=== PATIENT | male | born 1985 | race Caucasian/White ===

== ENCOUNTER → 2017-05-24 | Outpatient (CLI) | payer OTHER | LOC: M OUTALCOH 12:31 | DX: Z03.89 Encounter for observation for other suspected diseases and conditions ruled out (principal) ==

== ENCOUNTER 2020-04-04 21:06 | Inpatient (IN) | payer MEDICAID, OTHER, SELFPAY ==
[~2020-04-04] VITALS: Ht 188 cm; Wt 60.0 kg
[~2020-04-04 21:06] MED LIST: No home meds; TRAZ-252 PO; TRIL1TAB PO; ZOLO50TA PO
[2020-04-04 21:56] LABS: HEMATOCRIT 51.7 % (42.0-52.0); HEMOGLOBIN 17.4 g/dl (13.5-17.5); MEAN CORPUSCULAR HEMOGLOBIN 30.7 pg (27.0-33.0); MEAN CORPUSCULAR HGB CONC 33.7 g/dl (32.0-36.5); MEAN CORPUSCULAR VOLUME 91.3 fl (80.0-96.0); PLATELET COUNT, AUTOMATED 204 10^3/uL (150-450); RED BLOOD COUNT 5.66 10^6/uL (4.30-6.10); WHITE BLOOD COUNT 6.8 10^3/uL (4.0-10.0)
[2020-04-04 22:26] LABS: AMPHETAMINES LEVEL URINE NEGATIVE (NEGATIVE); BARBITURATES URINE NEGATIVE (NEGATIVE); BENZODIAZEPINES URINE NEGATIVE (NEGATIVE); CANNABINOIDS URINE POSITIVE (NEGATIVE); COCAINE METABOLITE URINE NEGATIVE (NEGATIVE); METHADONE URINE NEGATIVE (NEGATIVE); OPIATES URINE NEGATIVE (NEGATIVE); PHENCYCLIDINE URINE NEGATIVE (NEGATIVE)
[2020-04-04 22:40] LABS: ACETAMINOPHEN LEVEL < 2.0 UG/ML (10.0-30.0); ALBUMIN 4.4 GM/DL (3.2-5.2); ALT/SGPT 22 U/L (12-78); BILIRUBIN,DIRECT 0.1 MG/DL (0.0-0.2); BILIRUBIN,TOTAL 0.5 MG/DL (0.2-1.0); BLOOD UREA NITROGEN 17 MG/DL (7-18); CALCIUM LEVEL 9.1 MG/DL (8.5-10.1); CARBON DIOXIDE LEVEL 31 MEQ/L (21-32); CHLORIDE LEVEL 106 MEQ/L (98-107); CREATININE FOR GFR 1.07 MG/DL (0.70-1.30); ETHYL ALCOHOL (ETHANOL) < 0.003 % (0.000-0.010); GLOMERULAR FILTRATION RATE > 60.0 (>60); GLUCOSE, FASTING 103 MG/DL (70-100); POTASSIUM SERUM 4.1 MEQ/L (3.5-5.1); SALICYLATE LEVEL < 1.7 MG/DL (5.0-30.0); SODIUM LEVEL 143 MEQ/L (136-145)
[2020-04-05 01:31] LABS: RSV AMPLIFICATION NEGATIVE (NEGATIVE)
[2020-04-05] MEDS ORDERED: MOM 30ML SUSPENSION UDC PO PRN (12:00)
[2020-04-05] MEDS ORDERED: ACETAMINOPHEN TAB 650MG DOSE (2X325MG) PO PRN (12:00)
[2020-04-05] MEDS ORDERED: traZODone 50 MG TAB PO PRN (12:00)
[2020-04-05] MEDS ORDERED: MAALOX 30 ML SUSP *UDC PO PRN (12:00)
[2020-04-05] MEDS ORDERED: OLANZapine ORAL DISINTEGRATING TAB 5MG PO PRN (12:00)
[2020-04-05 13:37] VITALS: BP 138/83
[2020-04-05 17:59] VITALS: BP 130/84
[2020-04-06 06:24] VITALS: BP 98/55
--- NOTE | 2020-04-06 10:24 | MHHPEPDOC ---
General Date Of Admission: Apr 05, 2020 Legal Status: 9.39 Chief Complaint "Suicidal. History of Present Illness HISTORY OF THE PRESENT ILLNESS: Patient is a 34 -year-old , male, who presents to [facility] reporting suicidal thoughts, he reports having a long history of PTSD from service and reports that he has had increasing intrusive thoughts, hypervigilance and nightmares. He reports that he is broken up with his girlfriend of 3 months as she reported she cannot tolerate his flashbacks and talking to various unseen others during reported flashbacks. He reported that this made him fairly upset and he had become suicidal pres enting to her ER for admission. He reports that he has not been taking any medications and [facility] not [facility]. He reports that he still feels suicidal even at this time feeling hopeless and despondent. Psychiatric Review of Systems Depression (2 or more weeks): depressed mood, anhedonia, insomnia/hypersomnia, feelings of excess/guilt Maggie (4 or more days of): denies Psychosis: denies PTSD: history of trauma, nightmares and flashbacks, intrusive memories, hypervigilance, avoidance of triggers Anxiety: stressor related anxiety, panic attacks Anxiety/ 6 months or more of: irritability, sleep disturbance Past Psychiatric History Previous Psychiatric Diagnosis: PTSD. Previous Psychiatric Admissions: Last in 2013. Suicide Attempts: Reports overdoses in the past. Psychiatric Follow-up: None currently previously followed at the [place]. Psychiatric medications: Had tried sertraline BuSpar and trazodone in the past on no current medications this time. Past Medical History Medical Problems None significant Family Medical/Psychiatric HX Psychiatric Disorders: No Addiction History other (intermittent cannabis use) Social History Abuse/Trauma: History of service/, trauma. Current Living Situation: Homeless. Education: High school education. Employment: Unemployed on [employer] benefits. Social Support: Few. Legal: None significant at this time. Marital: Unmarried. Mental Status Examination General Appearance: unkempt Build: thin Demeanor: average Eye Contact: average Activity: average Behavior: cooperative Speech: clear Mood: depressed, anxious Affect: constricted Thought Process: logical/linear Cognition(Intelligence Est.): average Oriented: Oriented times three Insight: poor Judgment: Poor Psychosis: Denies Assessment 34-year-old man with a history of PTSD presents with significant depression likely in a state of adjustment after losing his recent relationship, his appetite effects or other approved agents for PTSD and would do well to be started on a appropriate agent and monitored, Problem List Problems: (1) Posttraumatic stress disorder Status: Chronic Response to Treatment: Uncontrolled Discussed With: Patient Problem Specific Plan: Monitor Clinically Problem Text: Start Effexor 37.5 mg daily (2) Adjustment reaction, depressive, brief Status: Acute Response to Treatment: Uncontrolled Problem Text: Will help patient with housing to determine safe discharge when his appropriate Initial Treatment Plan 1. Patient was admitted on a [9.39] status. 2. Complete history was obtained. 3. With patients permission, family will be contacted and database will be expanded. 4. Patients medication regimen will be reviewed and changed accordingly. 5. Patient will be provided with protected environment. 6. Patient will be treated with individual, group, and milieu therapies. 7. Patient will receive supportive psych-education. 8. Discharge planning will commence immediately. 9. Outpatient follow-up treatment will be strongly recommended. 10. The initial treatment plan will focus initially on: * Depression. * Risk for suicide. ESTIMATED LENGTH OF STAY: 3-7 DAYS. TIME SPENT COUNSELING AND COORDINATING INITIAL CARE: 30 minutes. Vital Signs Vital Signs Date Time Temp Pulse Resp B/P (MAP) Pulse Ox O2 Delivery O2 Flow Rate FiO2 04/06/20 06:24 98.1 50 16 98/55 (69) 98 Room Air Medications No Active Prescriptions or Reported Meds Allergies Coded Allergies: Penicillins (Verified Allergy, Severe, ANAPHYLAXIS, 04/04/20) ELEANOR NOLASCO DO Apr 06, 2020 10:24
[2020-04-06] MEDS ORDERED: VENLAFAXINE **XR** 37.5 MG CAPSULE PO ONE (13:15)
[2020-04-06 18:00] VITALS: BP 132/87
[2020-04-07 05:53] VITALS: BP 103/64
[2020-04-07] MEDS: VENLAFAXINE **XR** 37.5 MG CAPSULE PO SCH (08:27)
--- NOTE | 2020-04-07 11:33 | MHIPNPDOC ---
[facility] Progress Note Progress Note DATE OF SERVICE: 04/07/20 HISTORY: The patient is met with today, he reports that he had some minor upset stomach and a headache when he started the Effexor yesterday, otherwise reports he is doing very well and feels much less depressed and anxious feeling much improvement and being able to go to groups. He reports he feels that his suicidality had resolved but is ambivalent about going at this time is he wants to make sure that his improvement continues. The patient reports that even unusual to feel depressed depressed and anxious having been so anxious and d epressed for some time.. VITAL SIGNS: See below. NEW TEST RESULTS: None. CURRENT MEDICATIONS: See below. MENTAL STATUS EXAMINATION: General: [Well dressed with good hygiene] Speech: [Spontaneous and fluid] Thought processes: [Linear and logical] Thought content: [Future orientated] Abstract reasoning, and computation: [Intact] Description of associations: [Intact] Description of abnormal or psychotic thoughts:[Denies any suicidal or homicidal ideation. Denies any auditory or visual hallucinations. Does not appear to be responding to internal stimuli. Does not appear to be endorsing any bizarre or paranoid ideation.] Judgment: [Fair] Insight: [Fair] Orientation: [Alert and orientated 3] Recent and remote memory: [Intact] Attention span and concentration: [Intact] Fund of knowledge: [Adequate] Mood: "Better" Affect: [Euthymic with a full range] DIAGNOSES: 1. PTSD chronic. 2. MDD,, recurrent, unspecified ASSESSMENT: The patient will need further observation will continue medications appears to be helping with his symptoms, as long history of psychiatric involvement and significant suicide attempts or gestures monitoring will be involved in making sure that the changes are sustained and not simply placebo, anticipate discharge early next week MANAGEMENT PLAN: Continue Effexor 37.5 mg daily TIME SPENT: 15 minutes. Vital Signs Vital Signs Date Time Temp Pulse Resp B/P (MAP) Pulse Ox O2 Delivery O2 Flow Rate FiO2 04/07/20 05:53 98.3 54 16 103/64 (77) 98 Room Air Current Medications Current Medications Medications (Trade) Dose Ordered Sig/Arely Route PRN Reason Start Time Stop Time Status Last Admin Dose Admin Acetaminophen (Tylenol Tab) 650 mg Q6HP PRN PO HEADACHE or DISCOMFORT 04/05/20 12:00 Al Hydrox/Mg Hydrox/Simethicone (Mylanta) 30 ml Q4HP PRN PO HEARTBURN/INDIGESTION 04/05/20 12:00 Home Med (Med Rec Complete!) ASDIRECTED XX 04/05/20 00:00 04/05/20 00:07 DC Magnesium Hydroxide (Milk Of Magnesia) 30 ml DAILYPRN PRN PO CONSTIPATION 04/05/20 12:00 Olanzapine (ZyPREXA ZYDIS) 5 mg TIDP PRN PO AGITATION 04/05/20 12:00 Trazodone HCl (Desyrel) 50 mg QHSP PRN PO INSOMNIA 04/05/20 12:00 Venlafaxine HCl (Effexor Xr) 37.5 mg DAILY PO 04/07/20 09:00 04/07/20 08:27 Allergies Coded Allergies: Penicillins (Verified Allergy, Severe, ANAPHYLAXIS, 04/04/20) ELEANOR NOLASCO DO Apr 07, 2020 11:33
--- NOTE | 2020-04-07 12:24 | HPEPDOC ---
General Date of Admission Apr 05, 2020 at 11:53 Date of Service: Apr 07, 2020 Chief Complaint The patient is a 34-year-old male admitted with a reason for visit of PTSD. Source: Patient, RN/MD History of Present Illness 34 year old male with h/o depression, PTSD was admitted to [facility] for PTSD, depression with suicidal ideas. 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 This made him depressed as he had lost other close ones from these issues and he started having suicidal thoughts and expressed suicidal ideas so the police was called and he was brought to the ED. I am seeing the patient for medical history and physical. Today he complained of having some nausea at night but no vomiting. Nausea has now resolved, no abdominal pain or diarrhea. Home Medications No Active Prescriptions or Reported Meds Allergies Coded Allergies: Penicillins (Verified Allergy, Severe, ANAPHYLAXIS, 04/04/20) Past Medical History Medical History Depression with prior multiple suicide attempts.. PTSD Vision problem Family History Has mental health problems in mother and sister. His fathers side of family is healthy and he does not know about any medical conditions. His grandmother is in her 90s and is alive and healthy. Social History * Smoker: former Smoker Alcohol: occationally Drugs: marijuana A-FIB/CHADSVASC A-FIB History Current/History of A-Fib/PAF?: No Review of Systems Constitutional: Denies: Chills, Fever, Night Sweats Eyes: Denies: Pain, Vision change ENT: Denies: Head Aches, Ear Pain, Dysphagia Skin: Denies: Rash, Lesions, Breakdown Pulmonary: Denies: Dyspnea, Cough Cardiovascular: Denies: Chest Pain, Palpitations, Orthopnea, Paroxysmal Noc. Dyspnea, Lt Headedness Gastrointestinal: Denies: Nausea, Vomiting, Abdominal Pain, Diarrhea Genitourinary: Denies: Dysuria, Frequency, Incontinence, Retention Hematologic: Denies: Bruising, Bleeding Excessively Musculoskeletal: Denies: Neck Pain, Back Pain, Joint Pain, Muscle Pain, Spasms Physical Examination General Exam: Positive: Alert, Cooperative, No Acute Distress Eye Exam: Positive: PERRLA, Conjunctiva & lids normal, EOMI; Negative: Sclera icteric ENT Exam: Positive: Atraumatic, Mucous membr. moist/pink, Pharynx Normal Neck Exam: Positive: Supple; Negative: JVD, thyromegaly Chest Exam: Positive: Clear to auscultation, Normal air movement Heart Exam: Positive: Rate Normal, Regular Rhythm, Normal S1, Normal S2; Negative: Murmurs, Rubs Abdomen Exam: Positive: Normal bowel sounds, Soft; Negative: Tenderness, Hepatospenomegaly Extremity Exam: Positive: Normal pulses; Negative: Clubbing, Cyanosis, Edema Vital Signs Vital Signs Date Time Temp Pulse Resp B/P (MAP) Pulse Ox O2 Delivery O2 Flow Rate FiO2 04/06/20 18:00 99.3 97 16 132/87 (102) 98 04/06/20 06:24 Room Air Assessment/Plan 34 year old male with h/o depression, PTSD was admitted to [facility] for PTSD, depression with suicidal ideas. I am seeing the patient for medical history and physical. PTSD/Depression as per psychiatry No acute medical issues at this time. Plan / VTE VTE Prophylaxis Ordered?: No (freely ambulatory) LETTY RAMACHANDRAN MD Apr 06, 2020 23:27
[2020-04-07 18:04] VITALS: BP 128/86
[2020-04-08 05:47] VITALS: BP 110/66
[2020-04-08] MEDS: VENLAFAXINE **XR** 37.5 MG CAPSULE PO SCH (08:05)
--- NOTE | 2020-04-08 10:54 | MHIPNPDOC ---
[facility] Progress Note Progress Note DATE OF SERVICE: 04/08/20 HISTORY: The patient has met with today he is made great progress and his depression and anxiety are slowly improving. Or side effect of his medications and feels much improved with the suicidal thoughts still abated from yesterday. He is doing well attended groups and he feels like he is making a lot of progress today. He is open to trying to figure out a discharge plan talks about going with his family in [place]. VITAL SIGNS: See below. NEW TEST RESULTS: None. CURRENT MEDICATIONS: See below. MENTAL STATUS EXAMINATION: General: [Well dressed with good hygiene] Speech: [Spontaneous and fluid] Thought processes: [Linear and logical] Thought content: [Future orientated] Abstract reasoning, and computation: [Intact] Description of associations: [Intact] Description of abnormal or psychotic thoughts:[Denies any suicidal or homicidal ideation. Denies any auditory or visual hallucinations. Does not appear to be responding to internal stimuli. Does not appear to be endorsing any bizarre or paranoid ideation.] Judgment: [Fair] Insight: [Fair] Orientation: [Alert and orientated 3] Recent and remote memory: [Intact] Attention span and concentration: [Intact] Fund of knowledge: [Adequate] Mood: "Better" Affect: [Euthymic with a full range] DIAGNOSES: 1. PTSD chronic. 2. MDD, recurrent, unspecified ASSESSMENT: Likely will be ready for discharge early next week, will have patient under supervision send message to his sister who could be a potentially good discharge plan MANAGEMENT PLAN: Continue Effexor 37.5 mg daily TIME SPENT: 15 minutes. Vital Signs Vital Signs Date Time Temp Pulse Resp B/P (MAP) Pulse Ox O2 Delivery O2 Flow Rate FiO2 04/08/20 05:47 97.7 56 16 110/66 (81) 98 Room Air Current Medications Current Medications Medications (Trade) Dose Ordered Sig/Arely Route PRN Reason Start Time Stop Time Status Last Admin Dose Admin Acetaminophen (Tylenol Tab) 650 mg Q6HP PRN PO HEADACHE or DISCOMFORT 04/05/20 12:00 Al Hydrox/Mg Hydrox/Simethicone (Mylanta) 30 ml Q4HP PRN PO HEARTBURN/INDIGESTION 04/05/20 12:00 Home Med (Med Rec Complete!) ASDIRECTED XX 04/05/20 00:00 04/05/20 00:07 DC Magnesium Hydroxide (Milk Of Magnesia) 30 ml DAILYPRN PRN PO CONSTIPATION 04/05/20 12:00 Olanzapine (ZyPREXA ZYDIS) 5 mg TIDP PRN PO AGITATION 04/05/20 12:00 Trazodone HCl (Desyrel) 50 mg QHSP PRN PO INSOMNIA 04/05/20 12:00 Venlafaxine HCl (Effexor Xr) 37.5 mg DAILY PO 04/07/20 09:00 04/08/20 08:05 Allergies Coded Allergies: Penicillins (Verified Allergy, Severe, ANAPHYLAXIS, 04/04/20) ELEANOR NOLASCO DO Apr 08, 2020 10:54
[2020-04-08 17:30] VITALS: BP 118/65
[2020-04-09 06:32] VITALS: BP 135/65
[2020-04-09] MEDS: VENLAFAXINE **XR** 37.5 MG CAPSULE PO SCH (09:17)
--- NOTE | 2020-04-09 19:29 | MHIPNPDOC ---
[facility] Progress Note Progress Note DATE OF SERVICE: 04/09/20 HISTORY: the patient reports feeling better, he thinks he is having a good response to medications. He reports a h/o trauma and reports a h/o nightmares but he says that they are less frequent now. Reports good sleep and good appetite, feels less anxious and less depressed. VITAL SIGNS: See below. NEW TEST RESULTS: None. CURRENT MEDICATIONS: See below. MENTAL STATUS EXAMINATION: General: 34 year old male that presents to the office wearing hospital clothes, with good hygiene, wearing a facemask Speech: Spontaneous and fluid, normal in r/t/v Thought processes: Linear and coherent Thought content: Denies SI/HI, he is future orientated Abstract reasoning, and computation: Intact Description of associations: Intact Description of abnormal or psychotic thoughts: Denies any suicidal or homicidal ideation. Denies any auditory or visual hallucinations. Does not appear to be responding to internal stimuli. Does not appear to be endorsing any bizarre or paranoid ideation. Judgment: Fair Insight: Fair Orientation: Alert and orientated 3 Recent and remote memory: Intact Attention span and concentration: Intact Fund of knowledge: [Adequate] Mood: "I feel fine" Affect: Euthymic, congruent with mood DIAGNOSES: 1. PTSD chronic. 2. MDD, recurrent, unspecified ASSESSMENT: The patient seems to be responding to medications, he reports feeling less anxious and less depressed, says his sleep has improved and says his nightmares are decreased. Will continue to monitor over the weekend, I think he will be safe to be discharged next week. MANAGEMENT PLAN: Continue Effexor 37.5 mg daily TIME SPENT: 15 minutes. Vital Signs Vital Signs Date Time Temp Pulse Resp B/P (MAP) Pulse Ox O2 Delivery O2 Flow Rate FiO2 04/09/20 06:32 98.0 50 16 135/65 (88) 98 Room Air Current Medications Current Medications Medications (Trade) Dose Ordered Sig/Arely Route PRN Reason Start Time Stop Time Status Last Admin Dose Admin Acetaminophen (Tylenol Tab) 650 mg Q6HP PRN PO HEADACHE or DISCOMFORT 04/05/20 12:00 Al Hydrox/Mg Hydrox/Simethicone (Mylanta) 30 ml Q4HP PRN PO HEARTBURN/INDIGESTION 04/05/20 12:00 Home Med (Med Rec Complete!) ASDIRECTED XX 04/05/20 00:00 04/05/20 00:07 DC Magnesium Hydroxide (Milk Of Magnesia) 30 ml DAILYPRN PRN PO CONSTIPATION 04/05/20 12:00 Olanzapine (ZyPREXA ZYDIS) 5 mg TIDP PRN PO AGITATION 04/05/20 12:00 Trazodone HCl (Desyrel) 50 mg QHSP PRN PO INSOMNIA 04/05/20 12:00 Venlafaxine HCl (Effexor Xr) 37.5 mg DAILY PO 04/07/20 09:00 04/09/20 09:17 Allergies Coded Allergies: Penicillins (Verified Allergy, Severe, ANAPHYLAXIS, 04/04/20) RODRIGUEZ BENDER MD Apr 09, 2020 19:29
[2020-04-10 06:00] VITALS: BP 113/63
[2020-04-10] MEDS: VENLAFAXINE **XR** 37.5 MG CAPSULE PO SCH (08:01)
--- NOTE | 2020-04-10 13:35 | MHIPNPDOC ---
[facility] Progress Note Progress Note DATE OF SERVICE: 04/10/20 HISTORY: the patient reports feeling better, he thinks he is having a good response to medications. He reports a h/o trauma and reports a h/o nightmares but he says that they are less frequent now. Reports good sleep and good appetite, feels less anxious and less depressed but today, as one of the patients ran towards the door and there was a loud noise that reminded him of a bomb VITAL SIGNS: See below. NEW TEST RESULTS: None. CURRENT MEDICATIONS: See below. MENTAL STATUS EXAMINATION: General: 34 year old male that presents to the office wearing hospital clothes, with good hygiene, wearing a facemask Speech: Spontaneous and fluid, normal in r/t/v Thought processes: Linear and coherent Thought content: Denies SI/HI, he is future orientated Abstract reasoning, and computation: Intact Description of associations: Intact Description of abnormal or psychotic thoughts: Denies any suicidal or homicidal ideation. Denies any auditory or visual hallucinations. Does not appear to be responding to internal stimuli. Does not appear to be endorsing any bizarre or paranoid ideation but he got triggered by a loud noise at the Unit, where he immediately thought it was a bomb, he became very anxious and developed tachycardia. Judgment: Fair Insight: Fair Orientation: Alert and orientated 3 Recent and remote memory: Intact Attention span and concentration: Intact Fund of knowledge: [Adequate] Mood: "I was fine but I got triggered, I'm very anxious now" Affect: Euthymic, congruent with mood DIAGNOSES: 1. PTSD chronic. 2. MDD, recurrent, unspecified ASSESSMENT: patient's PTSD was triggered after a loud noise in the Unit, it reminded him of the noise that a bomb makes when it explodes. He was told he has PRN medication he can ask for in case he doesn't improve by using his coping skills ( deep breathing). Will continue to monitor. MANAGEMENT PLAN: Continue with current treatment plan TIME SPENT: 15 minutes. Vital Signs Vital Signs Date Time Temp Pulse Resp B/P (MAP) Pulse Ox O2 Delivery O2 Flow Rate FiO2 04/10/20 06:00 98.8 60 12 113/63 (80) 96 Room Air Current Medications Current Medications Medications (Trade) Dose Ordered Sig/Arely Route PRN Reason Start Time Stop Time Status Last Admin Dose Admin Acetaminophen (Tylenol Tab) 650 mg Q6HP PRN PO HEADACHE or DISCOMFORT 04/05/20 12:00 Al Hydrox/Mg Hydrox/Simethicone (Mylanta) 30 ml Q4HP PRN PO HEARTBURN/INDIGESTION 04/05/20 12:00 Home Med (Med Rec Complete!) ASDIRECTED XX 04/05/20 00:00 04/05/20 00:07 DC Magnesium Hydroxide (Milk Of Magnesia) 30 ml DAILYPRN PRN PO CONSTIPATION 04/05/20 12:00 Olanzapine (ZyPREXA ZYDIS) 5 mg TIDP PRN PO AGITATION 04/05/20 12:00 Trazodone HCl (Desyrel) 50 mg QHSP PRN PO INSOMNIA 04/05/20 12:00 Venlafaxine HCl (Effexor Xr) 37.5 mg DAILY PO 04/07/20 09:00 04/10/20 08:01 Allergies Coded Allergies: Penicillins (Verified Allergy, Severe, ANAPHYLAXIS, 04/04/20) RODRIGUEZ BENDER MD Apr 10, 2020 13:28
[2020-04-10 18:00] VITALS: BP 112/79
[2020-04-11 06:31] VITALS: BP 105/57
[2020-04-11] MEDS: VENLAFAXINE **XR** 37.5 MG CAPSULE PO SCH (08:00)
[2020-04-11 17:33] VITALS: BP 134/73
[2020-04-12 06:07] VITALS: BP 118/73
[2020-04-12] MEDS: VENLAFAXINE **XR** 37.5 MG CAPSULE PO SCH (08:29)
[2020-04-12 17:49] VITALS: BP 124/81
[2020-04-13 06:06] VITALS: BP 102/55
[2020-04-13] MEDS: VENLAFAXINE **XR** 37.5 MG CAPSULE PO SCH (08:49)
[2020-04-13 15:34] VITALS: BP 119/69
[2020-04-14 06:30] VITALS: BP 113/58
[2020-04-14] MEDS: VENLAFAXINE **XR** 37.5 MG CAPSULE PO SCH (08:21)
[2020-04-14 16:50] VITALS: BP 112/65
[2020-04-15 06:59] VITALS: BP 129/64
[2020-04-15] MEDS: VENLAFAXINE **XR** 37.5 MG CAPSULE PO SCH (08:19)
--- NOTE | 2020-04-15 12:18 | MHIPNPDOC ---
[facility] Progress Note Progress Note Item Value Date Time Venlafaxine HCl 37.5 mg 04/07/20 0900 (Effexor Xr) DAILY/PO 04/15/20 0819 Trazodone HCl 50 mg 04/05/20 1200 (Desyrel) QHSP PRN/PO Acetaminophen 650 mg 04/05/20 1200 (Tylenol Tab) Q6HP PRN/PO Magnesium 30 ml 04/05/20 1200 Hydroxide DAILYPRN PRN/PO (Milk Of Magnesia) Al Hydrox/Mg 30 ml 04/05/20 1200 Hydrox/Simethicone Q4HP PRN/PO (Mylanta) Olanzapine 5 mg 04/05/20 1200 (ZyPREXA TIDP PRN/PO ZYDIS) DATE OF SERVICE: 04/12/20 HISTORY: DATE OF SERVICE: 04/12/2020 CHIEF COMPLAINT: HISTORY: This is a 34-year-old male who was in the [employer] and 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 Patient reported history of Posttraumatic Stress Disorder event before the deployment. Patient was invited to his meeting. We met for 30 minutes. Chart was reviewed. Patient indicates that she had an issue with her girlfriend, but that has been resolved. Patient also indicate prior history of suicidal attempt by hanging, by firearm and by jumping from a moving vehicle. Patient indicates that was the past and does not want to repeat past history. He does not want to talk about the past. He feels content that his girlfriend understood him and is willing to take him back. Patient denies auditory and visual hallucination. She denies suicidal and homicidal ideation. Patient reports that she has been on the following medications: OBJECTIVE: VITAL SIGNS: See below. NEW TEST RESULTS: See below. CURRENT MEDICATIONS: See below. MENTAL STATUS EXAMINATION: Patient is a 34-year old male, who looks his stated age. He is casually dressed with hospital attire with good hygiene. Speech: Is clear, not pressured with normal tone and volume. Patient makes good eye contact. Motor activity: No Psychomotor agitation. No psychomotor retardation. Thought processes : Linear, logical and circumstantial. Thought content: Appropriate . Perceptions: Denies auditory and visual hallucinations. Denied persecutory delusions. Judgment: Is fair. Insight: Fair. Orientation: Oriented to time, place, person and situation. Immediate recall, Recent and remote memory: are grossly intact. Attention span is good and concentration: is normal. Fund of knowledge: Average by educational attainment. Mood: Is said to be "okay.". Affect: Appropriate and is mood congruent. Assessment and Plan: Assess 34-year-old Male with Long Signs and Symptoms of depressive disorder, consistent with posttraumatic stress disorder, in partial remission. DIAGNOSES: 1. Posttraumatic stress disorder, in partial remission. 2. Adjustment disorder with mixed 3. Personality disorder, not otherwise specified. MANAGEMENT PLAN: TIME SPENT: 45 minutes. Vital Signs Vital Signs Date Time Temp Pulse Resp B/P (MAP) Pulse Ox O2 Delivery O2 Flow Rate FiO2 04/15/20 06:59 97.5 53 16 129/64 (85) 99 Room Air Current Medications Current Medications Medications (Trade) Dose Ordered Sig/Arely Route PRN Reason Start Time Stop Time Status Last Admin Dose Admin Acetaminophen (Tylenol Tab) 650 mg Q6HP PRN PO HEADACHE or DISCOMFORT 04/05/20 12:00 Al Hydrox/Mg Hydrox/Simethicone (Mylanta) 30 ml Q4HP PRN PO HEARTBURN/INDIGESTION 04/05/20 12:00 Home Med (Med Rec Complete!) ASDIRECTED XX 04/05/20 00:00 04/05/20 00:07 DC Magnesium Hydroxide (Milk Of Magnesia) 30 ml DAILYPRN PRN PO CONSTIPATION 04/05/20 12:00 Olanzapine (ZyPREXA ZYDIS) 5 mg TIDP PRN PO AGITATION 04/05/20 12:00 Trazodone HCl (Desyrel) 50 mg QHSP PRN PO INSOMNIA 04/05/20 12:00 Venlafaxine HCl (Effexor Xr) 37.5 mg DAILY PO 04/07/20 09:00 04/15/20 08:19 Allergies Coded Allergies: Penicillins (Verified Allergy, Severe, ANAPHYLAXIS, 04/04/20) BRIDGET CHRISTINE MD Apr 15, 2020 12:18
--- NOTE | 2020-04-15 13:04 | MHDSPDOC ---
[facility] Discharge Summary Discharge Summary Item Value Date Time Venlafaxine HCl 37.5 mg 04/07/20 0900 (Effexor Xr) DAILY/PO 04/15/20 0819 Trazodone HCl 50 mg 04/05/20 1200 (Desyrel) QHSP PRN/PO Acetaminophen 650 mg 04/05/20 1200 (Tylenol Tab) Q6HP PRN/PO Magnesium 30 ml 04/05/20 1200 Hydroxide DAILYPRN PRN/PO (Milk Of Magnesia) Al Hydrox/Mg 30 ml 04/05/20 1200 Hydrox/Simethicone Q4HP PRN/PO (Mylanta) Olanzapine 5 mg 04/05/20 1200 (ZyPREXA TIDP PRN/PO ZYDIS) DATE OF ADMISSION: Apr 05, 2020 at 11:53 DATE OF DISCHARGE: 04/15/2020 DISCHARGE DIAGNOSES: 1. Posttraumatic stress disorder in partial remission. 2. Personality disorder NOS. REASON FOR ADMISSION: Exacerbation of PTSD symptoms, Adjustment disorder with depressed mood and mixed emotions. Reported that the he, his girlfriend broke up the relationship with him and told him that she no longer wants to be with him. Patient had a history of depressed mood with suicidal thoughts. History of having attempted suicide several times by thinking, firearm and attempted to jump from moving vehicles. CONSULTANTS INVOLVED: Drs. Wen and Thomas TREATMENT AND PROGRESS ON THE UNIT: While patient was in the unit, he has been compliant with his medications. He has been participating in group therapy and other activities in the unit. HOSPITAL COURSE: Patient states that he has been doing fairly well. He has not. He has not been in need of as needed medications. He has been participating in group therapy and other activities in the unit. DISCHARGE ASSESSMENT: The patient has been assessed and is stable to go back to the community. He is not representing a danger to self or to others at this time. MENTAL STATUS EXAMINATION ON DISCHARGE: Patient is a 34-year old male, who looks his stated age. He is casually dressed with hospital attire with good hygiene. Speech: Is clear, not pressured with normal tone and volume. Patient makes good eye contact. Motor activity: No Psychomotor agitation. No psychomotor retardation. Thought processes : Linear, logical and circumstantial. Thought content: Appropriate . Perceptions: Denies auditory and visual hallucinations. Denied persecutory delusions. Judgment: Is sound. Insight: Fair. Orientation: Oriented to time, place, person and situation. Immediate recall, Recent and remote memory: are grossly intact. Attention span is good and concentration: is normal. Fund of knowledge: Average by educational attainment. Mood: Is said to be "okay.". Affect: Appropriate and is mood congruent. Assessment and Plan: Assess 34-year-old Male with Long history of Signs and Symptoms of depressive disorder, consistent with Posttraumatic Stress Disorder, in partial remission. MEDICATIONS ON DISCHARGE: see above PLAN/FOLLOWUP ARRANGEMENTS: [facility] The amount of time spent in the coordination of care for this patient was approximately 40 minutes. Vital Signs/I&Os Vital Signs Date Time Temp Pulse Resp B/P (MAP) Pulse Ox O2 Delivery O2 Flow Rate FiO2 04/15/20 06:59 97.5 53 16 129/64 (85) 99 Room Air Medications No Active Prescriptions or Reported Meds Allergies Coded Allergies: Penicillins (Verified Allergy, Severe, ANAPHYLAXIS, 04/04/20) BRIDGET CHRISTINE MD Apr 15, 2020 13:04
[2020-04-15] MEDS ORDERED: VENL37.598 PO (13:45)
[2020-04-15] MEDS ORDERED: MOM30SS2 PO (13:45)
[2020-04-15] MEDS ORDERED: OLAN15TA PO (13:45)
[2020-04-15] MEDS ORDERED: TRAZ-252 PO (13:45)
== END 2020-04-15 14:25 | disposition home or self-care (01) | DRG 882 ==
LOC: M ED 21:06 → M ED INP 04-05 11:53 → EDBD 04-05 11:53 → M PSY 04-05 12:20
PROVIDERS: ADMIT Psychiatry & Neurology Psychiatry; ATTEND Pediatrics
DX: F43.10 Post-traumatic stress disorder, unspecified (principal); F60.9 Personality disorder, unspecified; Z88.0 Allergy status to penicillin; Z87.891 Personal history of nicotine dependence; F12.90 Cannabis use, unspecified, uncomplicated